=== PATIENT | female | born 1945 | race Caucasian/White ===

== ENCOUNTER → 2024-08-31 14:57 | Outpatient (REF) | payer MEDICARE, OTHER, SELFPAY | LOC: RCS 14:57 | PROVIDERS: ATTENDING PHYSICIAN Nuclear Medicine Nuclear Cardiology; FAMILY PHYSICIAN Family Medicine | DX: I34.0 Nonrheumatic mitral (valve) insufficiency (principal); I10 Essential (primary) hypertension; R55 Syncope and collapse | CPT/HCPCS: 93306 ==